=== PATIENT | female | born 1980 | race African-American/Black ===

== ENCOUNTER → 2019-08-17 | Outpatient (CLI) | payer OTHER ==
--- NOTE | 2019-08-17 09:51 | Diagnostic Imaging Report ---
Left third finger, 3 views. History: Swelling. Findings: The soft tissues are normal. Bone mineralization is normal. There is no evidence of fracture or dislocation. There are no lytic or sclerotic lesions. The joint spaces are within normal limits. IMPRESSION: Normal left third finger. Signed by: Juan Govea on 08/17/2019 9:48 AM
== END ==
LOC: RAD 08:42
PROVIDERS: ATTEND Family Medicine
DX: M79.645 Pain in left finger(s) (principal)

== ENCOUNTER → 2019-10-03 | Outpatient (CLI) | payer SELFPAY ==
--- NOTE | 2019-10-03 09:54 | Diagnostic Imaging Report ---
EXAM: Transabdominal and Transvaginal Pelvic Ultrasound INDICATION: ANEMIA COMPARISON: None TECHNIQUE: Grayscale transverse and sagittal transabdominal and transvaginal images were obtained of the pelvis. Transvaginal imaging was medically necessary to better evaluate the endometrium and the adnexa. FINDINGS: Uterus Orientation: Normal. Size: 9.6 x 4.2 x 5.5 cm, Normal. Mass: None Cervix: Nabothian cysts. Endometrium: Thickness: 1.4 cm, Normal. Appearance: Homogeneous echotexture without focal thickening. Bilateral ovaries are not seen due to overlying gas. Adnexa: Normal Cul-de-sac: Trace free fluid IMPRESSION: Bilateral ovaries are not seen due to overlying gas, otherwise unremarkable pelvic ultrasound exam. Signed by: Pedro Pandey MD on 10/03/2019 9:51 AM
== END ==
LOC: US 08:42
PROVIDERS: ATTEND Family Medicine
DX: D64.9 Anemia, unspecified (principal)
CPT/HCPCS: 76830; 76856